=== PATIENT | female | born 1960 | race Two or more races ===

== ENCOUNTER 2023-08-04 16:15 | Emergency (ER) | payer OTHER ==
[2023-08-04 16:17] VITALS: PULSE 90; RESP 16
[2023-08-04] MEDS ORDERED: LORA2TAB95 MT (16:33)
[2023-08-04] MEDS ORDERED: ONDA4TAB50 MT (16:33)
[2023-08-04] MEDS ORDERED: IBUP-2029 MT (16:33)
== END 2023-08-04 18:31 | disposition left against medical advice (07) ==
LOC: ER 16:15
DX: F41.9 Anxiety disorder, unspecified (principal)
CPT/HCPCS: 99281